=== PATIENT | male | born 1990 | race Caucasian/White ===

== ENCOUNTER 2017-04-30 18:02 | Emergency (ER) | payer OTHER ==
[2017-04-30 18:37] VITALS: BP 130/78; PULSE 106; TEMP 99.1; BMI 35.5
--- NOTE | 2017-04-30 18:37 | PDOC ---
Rapid Medical Evaluation Time Seen by Provider: 04/30/17 18:34 Medical Evaluation: Allergies Allergy/AdvReac Type Severity Reaction Status Date / Time No Known Allergies Allergy Verified 03/24/12 11:16 04/30/17 18:34 I have performed a brief in-person evaluation of this patient. The patient presents with a chief complaint of: stomach pains x 1.5 wks, went to [facility] last week and was dx with gastritis and given omeprazole, now pain radiating to L shoulder Pertinent physical exam findings: well appearing I have ordered the following: labs, ekg The patient will proceed to the ED for further evaluation. Discharge Disposition - Diagnosis Abdominal pain - Referrals - Patient Instructions - Post Discharge Activity
[2017-04-30 18:52] LABS: BASO % 0.6 % (0-2.0); EOS % 2.1 % (0-4.5); HEMATOCRIT 45.1 % (35.4-49); HEMOGLOBIN 15.1 GM/dL (11.7-16.9); LYMPH % 12.3 % (8-40); MCH 27.4 pg (25.7-33.7); MCHC 33.4 g/dl (32.0-35.9); MEAN CELL VOLUME 82.1 fl (80-96); MEAN PLT VOLUME 7.2 fl (7.5-11.1); MONO % 8.3 % (3.8-10.2); NEUT % 76.7 % (42.8-82.8); PLATELET COUNT 359 K/MM3 (134-434); RBC 5.49 M/mm3 (4.00-5.60); RDW 13.1 % (11.9-15.9); WHITE BLOOD COUNT 10.9 K/mm3 (4.0-10.0)
[2017-04-30 19:16] LABS: ALBUMIN 3.9 g/dl (3.4-5.0); ALK PHOS 85 U/L (45-117); ANION GAP 7 (8-16); BILIRUBIN,TOTAL 0.6 mg/dL (0.2-1.0); BLOOD UREA NITROGEN 12 mg/dL (7-18); CALCIUM 8.7 mg/dL (8.5-10.1); CHLORIDE 104 mmol/L (98-107); CO2 28 mmol/L (21-32); CREATININE 1.1 mg/dL (0.7-1.3); GLUCOSE,RANDOM 95 mg/dL (74-106); POTASSIUM 4.2 mmol/L (3.5-5.1); SGOT/AST 13 U/L (15-37); SGPT/ALT 27 U/L (12-78); SODIUM 139 mmol/L (136-145); TOT PROT 7.8 g/dl (6.4-8.2)
[2017-04-30] MEDS ORDERED: RANITIDINE HCL 150 MG TABLET (FP) PO ONE (20:37)
--- NOTE | 2017-04-30 20:37 | PDOC ---
History of Present Illness - General Chief Complaint: Pain Stated Complaint: STOMACH PAIN Time Seen by Provider: 04/30/17 18:34 History Source: Patient - History of Present Illness Initial Comments: 04/30/17 20:29 26 year old male with left sided pain x 1.5 weeks. seen at [facility] ED 6 days ago, patient was diagnosed with gastritis and has been taking prilosec with no improvement in symptoms. patient reports pain is worse at night. Past History - Past Medical History Allergies/Adverse Reactions: Allergies Allergy/AdvReac Type Severity Reaction Status Date / Time No Known Allergies Allergy Verified 04/30/17 18:34 Home Medications: Ambulatory Orders No Home Medications 0 dose .ROUTE UTDICT 03/24/12 COPD: No - Suicide/Smoking/Psychosocial Hx Smoking Status: No Smoking History: Never smoked Number of Cigarettes Smoked Daily: 0 Review of Systems - Review of Systems Able to Perform ROS?: Yes Is the patient limited Kyrgyz proficient: No *Physical Exam - Vital Signs Last Vital Signs Temp Pulse Resp BP Pulse Ox 99.1 F 106 H 20 130/78 98 04/30/17 18:35 04/30/17 18:35 04/30/17 18:35 04/30/17 18:35 04/30/17 18:35 - Physical Exam General Appearance: Yes: Appropriately Dressed Respiratory/Chest: positive: Lungs Clear, Normal Breath Sounds. negative: Chest Tender Cardiovascular: positive: Regular Rhythm, Regular Rate Gastrointestinal/Abdominal: positive: Normal Bowel Sounds, Soft. negative: Tender Musculoskeletal: positive: Normal Inspection Extremity: positive: Normal Capillary Refill, Normal Inspection, Normal Range of Motion Integumentary: positive: Normal Color, Dry, Warm Neurologic: positive: Fully Oriented, Alert, Normal Mood/Affect ED Treatment Course - LABORATORY CBC & Chemistry Diagram: 04/30/17 18:44 04/30/17 18:44 - ADDITIONAL ORDERS Additional order review: Laboratory Results 04/30/17 04/30/17 18:44 18:44 Sodium 139 Potassium 4.2 Chloride 104 Carbon Dioxide 28 Anion Gap 7 L BUN 12 Creatinine 1.1 D Creat Clearance w eGFR > 60 Random Glucose 95 Calcium 8.7 Total Bilirubin 0.6 D AST 13 L ALT 27 D Alkaline Phosphatase 85 Total Protein 7.8 Albumin 3.9 Lipase 216 04/30/17 18:44 RBC 5.49 MCV 82.1 MCHC 33.4 RDW 13.1 MPV 7.2 L Neutrophils % 76.7 Lymphocytes % 12.3 Monocytes % 8.3 Eosinophils % 2.1 D Basophils % 0.6 - RADIOLOGY Radiology Studies Ordered: Category Date Time Status CHEST PA & LAT [RAD] Stat Radiology 04/30/17 20:28 Ordered Progress Note - Progress Note Progress Note: A: chest pain P: cbc cmp lipase cardiac ekg d-dimer chest xray: negative. official read pending Medical Decision Making - Medical Decision Making 05/01/17 01:04 CTA chest : multiple nodules in the right lung largest 7mm in the right lower lobe. no PE no aortic dissection or aneurysm. minimal fluid lower esophagus possible GERD *DC/Admit/Observation/Transfer Diagnosis at time of Disposition: Pulmonary nodule, right Abdominal pain Qualifiers: Abdominal location: upper abdomen, unspecified Qualified Code(s): R10.10 - Upper abdominal pain, unspecified Chest pain Qualifiers: Chest pain type: chest pain on breathing Qualified Code(s): R07.1 - Chest pain on breathing Gastritis Qualifiers: Gastritis type: unspecified gastritis Chronicity: acute Gastritis bleeding: without bleeding Qualified Code(s): K29.00 - Acute gastritis without bleeding - Discharge Dispostion Disposition: HOME - Referrals Referrals: Jose Santizo MD [Staff Physician] - Call tomorrow Rahul Briggs MD, MD [Staff Physician] - Call tomorrow - Patient Instructions Printed Discharge Instructions: DI for Atypical Chest Pain Additional Instructions: your tests for chest pain and abdominal pain were negative. it is not clear the cause of the pain. Please follow up with demo event specialist/ pulmonolgist. you may take ibuprofen 400 mg every 6 hours as needed for pain. follow up with your doctor as soon as possible. return to the ER if symptoms worsen. - Post Discharge Activity Forms/Work/School Notes: Back to Work
[2017-04-30] MEDS ORDERED: RANITIDINE HCL 150 MG TABLET (FP) ONE (20:41)
[2017-04-30] MEDS ORDERED: ASPIRIN 81 MG CHEWABLE TABLETS ONE (20:41)
[2017-04-30] MEDS ORDERED: ASPIRIN 81 MG CHEWABLE TABLETS PO SCH (20:45)
[2017-04-30 23:08] LABS: INR 1.19 (0.82-1.09); PROTHROMBIN TIME (PATIENT) 13.4 SEC (9.98-11.88)
--- NOTE | 2017-05-01 08:54 | EKG ---
Test Reason : Blood Pressure : / mmHG Vent. Rate : 080 BPM Atrial Rate : 080 BPM P-R Int : 138 ms QRS Dur : 082 ms QT Int : 338 ms P-R-T Axes : 036 028 029 degrees QTc Int : 389 ms NORMAL SINUS RHYTHM EARLY REPOLARIZATION NORMAL ECG NO PREVIOUS ECGS AVAILABLE Confirmed by Harrison Amaro MD ([id number]) on 05/01/2017 8:53:35 AM Referred By: Confirmed By:Harrison Amaro MD
== END 2017-05-01 01:18 | disposition home or self-care (01) ==
LOC: JER 18:02
DX: K29.00 Acute gastritis without bleeding (principal); R91.8 Other nonspecific abnormal finding of lung field
CPT/HCPCS: 36415; 71046-TC-FY; 71275-TC; 80053; 82550; 83690; 84484; 85025; 85379; 85610; 85730; 93005; 93010; 99283-25